=== PATIENT | female | born 1935 | race Caucasian/White ===

== ENCOUNTER 2017-06-10 11:03 | Day surgery (SDC) | payer MEDICARE, BC ==
[~2017-06-10 11:03] MED LIST: HYDROmorphone HCL 2 MG/ML VIAL IV PRN; RINGER'S SOLUTION,LACTATED 1,000 ML IV PRN
[2017-06-10] MEDS ORDERED: RINGER'S SOLUTION,LACTATED 1,000 ML IV ONE ×2 (11:33→15:47)
[2017-06-10] MEDS ORDERED: ceFAZolin SODIUM 1 GM VIAL IV ONE (15:40)
--- NOTE | 2017-06-10 16:50 | OR ---
Operative Report - Dictated Report Narrative: Date: 06/10/2017 Surgeon: Leighton Campuzano M.D. Blood Bank Booking Clerk: Joao Carey PA-C Anesthesia: MAC Preoperative diagnosis: Left extraarticular distal radius and ulna fractures Postoperative diagnosis: Left extraarticular distal radius and ulna fractures Procedure: 1. Closed reduction left extra-articular distal radius and ulna fractures with percutaneous pinning 2. Intra-operative interpretation of radiographs Estimated blood loss: Minimal Specimens: None Complications: None Indications: Jayla is a 82-year-old female who lives independently who tripped and fell from standing height on 06/08/2017 resulting in a injury to the left wrist. They were seen in the emergency department with images obtained revealing the above injury. She was temporarily placed in a splint and followed up with me on Saturday in clinic for further evaluation. Treatment options were discussed with the patient and family and the plan for closed reduction with possible pinning versus ORIF was discussed. Risks discussed include, but are not limited to, infection, neurovascular injury, malunion/ nonunion, arthrosis, loss of reduction, pin tract infection, arthrosis, stiffness, and risks with anesthesia. After discussion the patient wished to proceed. Procedure: After a timeout, MAC anesthetic was induced. Once adequate anesthesia was in place a reduction maneuver was performed by accentuating the fracture deformity and using manual manipulation to manipulate the distal radius and ulna fragments back onto the corresponding shafts. In the process of reducing the fracture a small skin tear was created dorsally due to the patient's thin skin. We were able to obtain satisfactory reduction however it was noted that the fracture was very unstable and it was at this point we elected to proceed with percutaneous pinning. The patient's left upper extremity was pre-scrubbed with chlorhexidine. A well-padded nonsterile tourniquet was then placed around the upper arm. The left upper extremity was then prepped and draped in usual sterile fashion. Attention was then turned back to the wrist and a similar reduction maneuver was performed which was confirmed via the mini C-arm. This reduction was held in place by my store assistant while I placed two 0.062 inch Mar wires in a crossed fashion from the radial styloid across the fracture and through the radial cortex proximally and ulnarly. The position of the wires as well as a reduction was confirmed via the mini C-arm. At this point we felt we had achieved acceptable reduction of the distal radius and ulna. The pins were then bent at the level of the skin, shortened, and pin caps placed over the cut ends. The dorsal skin tear was repaired with a running 4-0 nylon. Pin sites were dressed with Xeroform and 4 x 4's and the skin tear site was dressed with Xeroform and 4 x 4's as well. A well-padded short arm plaster cast was then placed, molded, and held in place while it cured. Patient was instructed to ice elevate and follow up as instructed. The extremity was neurovascularly intact postreduction.
[2017-06-10] MEDS ORDERED: oxyCODONE HCL/ACETAMINOPHEN 1 TAB TABLET PO PRN (16:59)
[2017-06-10 18:00] VITALS: BP 169/81
== END 2017-06-10 11:04 | disposition home or self-care (01) ==
LOC: AMB 11:03
PROVIDERS: ATTEND Orthopaedic Surgery
PROC: 0PSJ34Z Reposition Left Radius with Internal Fixation Device, Percutaneous Approach (ICD-10-PCS; principal; 2017-06-10)
PROC: 0PSL34Z Reposition Left Ulna with Internal Fixation Device, Percutaneous Approach (ICD-10-PCS; 2017-06-10)
DX: S52.552A Other extraarticular fracture of lower end of left radius, initial encounter for closed fracture (principal); S52.692A Other fracture of lower end of left ulna, initial encounter for closed fracture; I10 Essential (primary) hypertension; M81.0 Age-related osteoporosis without current pathological fracture; W00.0XXA Fall on same level due to ice and snow, initial encounter; Z87.891 Personal history of nicotine dependence; Z68.20 Body mass index [BMI] 20.0-20.9, adult